=== PATIENT | male | born 1970 | race Hispanic/Latino ===

== ENCOUNTER 2017-07-09 15:20 | Observation (INO) | payer MEDICAID ==
[2017-07-09 15:29] VITALS: BMI 33.6
[2017-07-09 16:45] LABS: BASO # 0.02 K/mm3 (0.0-2.0); BASO % 0.2 % (0.0-3.0); EOS # 0.3 (0.0-0.7); EOS % 3.5 % (1.5-5.0); GRAN # 7.28 (1.4-6.5); GRAN % 76.1 % (50.0-68.0); HEMATOCRIT 40.6 % (42.0-52.0); LYMPH # 1.2 (1.2-3.4); LYMPH % 12.6 % (22.0-35.0); MEAN CELL VOLUME 87.5 fl (80.0-105.0); MEAN CORPUSCULAR HEMOGLOBIN 30.4 pg (25.0-35.0); MEAN CORPUSCULAR HGB CONC 34.7 g/dl (31.0-37.0); MEAN PLATELET VOLUME 10.4 fl (7.0-11.0); MONO # 0.7 (0.1-0.6); MONO % 7.6 % (1.0-6.0); RED CELL DISTRIBUTION WIDTH 13.2 % (11.5-14.5); WHITE BLOOD COUNT 9.6 10^3/ul (4.5-11.0)
[2017-07-09 17:00] LABS: ALB/GLOB RATIO 1.6 (1.1-1.8); ALKALINE PHOSPHATASE 47 U/L (38-126); ALT/SGPT 35 U/L (7-56); AST/SGOT 30 U/L (17-59); BILIRUBIN,TOTAL 0.4 mg/dL (0.2-1.3); BLOOD UREA NITROGEN 12 mg/dL (7-21); CALCIUM 10.4 mg/dL (8.4-10.5); CARBON DIOXIDE 25 mmol/L (21-33); CHLORIDE 99 mmol/L (98-107); GFR AFRICAN-AMERICAN > 60; GLUCOSE,RANDOM 163 mg/dL (70-110); POTASSIUM 3.3 mmol/L (3.6-5.0); SODIUM 138 mmol/L (132-148); TOTAL PROTEIN 8.3 g/dL (5.8-8.3)
[2017-07-09 17:15] LABS: TROPONIN I < 0.01 ng/mL
[2017-07-09 17:18] LABS: INR 1.2 (0.93-1.08); PARTIAL THROMBOPLASTIN TIME 27.9 Seconds (25.1-36.5)
[2017-07-09] MEDS ORDERED: Potassium Chloride 20 mEq/15 ml LIQ UD PO STA (17:22)
--- NOTE | 2017-07-09 17:28 | RAD ---
HISTORY: Palpitations. Portable study 16:35. 01/04/2015 COMPARISON: No prior. FINDINGS: LUNGS: No active pulmonary disease. PLEURA: No significant pleural effusion identified, no pneumothorax apparent. CARDIOVASCULAR: No radiographic findings to suggest acute or significant cardiovascular disease. OSSEOUS STRUCTURES: No significant abnormalities. VISUALIZED UPPER ABDOMEN: Normal. OTHER FINDINGS: None. IMPRESSION: No active disease. No significant interval change compared to the prior examination(s).
--- NOTE | 2017-07-09 17:55 | ED PDOC ---
Arrival/HPI - General Chief Complaint: Anxiety Time Seen by Provider: 07/09/17 15:51 Historian: Patient - History of Present Illness Narrative History of Present Illness (Text): 07/09/17 17:52 Patient is a 46-year-old male with past medical history of anxiety, hypertension , diabetes, COPD, asthma, VT 8 years ago, and CHF, reports one day history of intermittent palpitations which started today with no chest pain or shortness of breath. States that he feels mildly improved upon arrival to the emergency room. Reports he is currently taking Tamiflu and Z-Sandoval for flulike symptoms and is on day 4 of his current medications. Otherwise: (-) diaphoresis, (-) dyspnea , (-) exertional component, (-) dizziness, (-) headache, (-) syncope, (-) nausea , (-) vomiting, (-) abdominal pain, (-) calf swelling/pain, (-) neuro deficits. States that he has been drinking and eating well. He adds that he has had a prior stress and echo which was not completely normal, done at [facility] 3 -4 months ago. PMD Steve Burleson Past Medical History - Provider Review Nursing Documentation Reviewed: Yes - Infectious Disease Hx of Infectious Diseases: None - Tetanus Immunization Tetanus Immunization: Unknown - Cardiac Hx Cardiac Disorders: Yes Hx Hypertension: Yes Other/Comment: VT 2008 - Pulmonary Hx Respiratory Disorders: Yes Hx Asthma: Yes Hx Emphysema: Yes - Neurological Hx Neurological Disorder: Yes Hx Migraine: Yes Other/Comment: concussion a yr ago - HEENT Hx HEENT Disorder: No - Renal Hx Renal Disorder: Yes Hx Kidney Stones: Yes - Endocrine/Metabolic Hx Endocrine Disorders: Yes Hx Diabetes Mellitus Type 2: Yes - Hematological/Oncological Hx Blood Disorders: No - Integumentary Hx Dermatological Disorder: No - Musculoskeletal/Rheumatological Hx Musculoskeletal Disorders: Yes Hx Back Pain: Yes (chronic) Other/Comment: knee injections - Gastrointestinal Hx Gastrointestinal Disorders: No - Genitourinary/Gynecological Hx Genitourinary Disorders: No Hx Reproductive Disorders: (low testosterone) - Psychiatric Hx Psychophysiologic Disorder: No Hx Substance Use: No - Surgical History Hx Musculoskeletal Surgery: Yes (back fussion) - Suicidal Assessment Feels Threatened In Home Enviroment: No Family/Social History - Physician Review Nursing Documentation Reviewed: Yes Family/Social History: Unknown Family HX Smoking Status: Former Smoker Hx Alcohol Use: No Hx Substance Use: No Hx Substance Use Treatment: No Allergies/Home Meds Allergies/Adverse Reactions: Allergies barbital Allergy (Verified 07/09/17 15:39) RASH Home Medications: Home Meds Medication Instructions Recorded Confirmed Alprazolam [Xanax] 2 mg PO BID 12/28/11 07/09/17 Aspirin 325 mg PO DAILY 12/28/11 07/09/17 Glipizide 10 mg PO DAILY 12/28/11 07/09/17 Insulin Human NPH/Reg [humulin 28 units SC ACBD 12/28/11 07/09/17 70/30 70 U/Ml-30 U/Ml 10 Ml] Metformin HCl [Metformin] 1,000 mg PO BID 12/28/11 07/09/17 Simvastatin [Zocor] 40 mg PO HS 12/28/11 07/09/17 Fenofibrate,Micronized 134 mg PO DAILY 06/26/14 07/09/17 [Fenofibrate] Hydrochlorothiazide 12.5 mg PO DAILY 06/26/14 07/09/17 Hydrocodone/Acetaminophen [Vicodin 1 tab PO Q4 06/26/14 07/09/17 Hp 300 mg-10 mg] Lisinopril 40 mg PO DAILY 06/26/14 07/09/17 Morphine [MS Contin] 60 mg PO Q8 06/26/14 07/09/17 Omeprazole [PrilOSEC] 40 mg PO DAILY 06/26/14 07/09/17 Vitamin D 50,000 iu PO QWK 06/26/14 07/09/17 Review of Systems - Review of Systems Constitutional: absent: Fatigue, Weight Change, Fevers ENT: absent: Sore Throat, Rhinorrhea, Epistaxis, Sinus Congestion Respiratory: absent: SOB, Cough, Sputum Cardiovascular: Palpitations. absent: Chest Pain, Edema Gastrointestinal: absent: Abdominal Pain, Diarrhea, Vomiting Genitourinary Male: absent: Dysuria, Frequency, Hematuria Musculoskeletal: absent: Arthralgias, Back Pain, Neck Pain Skin: absent: Rash, Pruritis, Skin Lesions Neurological: absent: Headache, Dizziness, Focal Weakness Psychiatric: Anxiety. absent: Depression, Suicidal Ideation Physical Exam - Physical Exam Narrative Physical Exam (Text): 07/09/17 17:55 GENERAL APPEARANCE: Patient is awake, alert, oriented x 3, in no acute distress. Breathing easy and unlabored, speaking in full sentences SKIN: Warm, dry; (-) cyanosis. EYES: (-) conjunctival pallor. ENMT: Mucous membranes moist. NECK: (-) tenderness, (-) stiffness, (-) lymphadenopathy, (-) JVD. CHEST AND RESPIRATORY: (-) rash, (-) chest wall tenderness. Lungs: (-) rales , (-) rhonchi, (-) wheezes, (-) rub; breath sounds equal bilaterally. HEART AND CARDIOVASCULAR: (+) tachycardic, (-) irregularity; (-) murmur, (-) gallop, (-) rub. ABDOMEN AND GI: Soft; (-) distention, (-) tenderness, (-) palpable pulsatile mass. EXTREMITIES: (-) deformity; (-) edema, (-) calf tenderness. (+) distal pulses. NEURO AND PSYCH: Mental status as above. Cranial nerves grossly intact; strength symmetric. Vital Signs Temp Pulse Resp BP Pulse Ox 07/09/17 15:40 98.4 F 118 H 20 124/84 100 Medical Decision Making ED Course and Treatment: 07/09/17 17:56 46-year-old male with past medical history of anxiety, hypertension, diabetes, COPD, asthma, VT 8 years ago, and CHF, reports one day history of intermittent palpitations which started today with no chest pain or shortness of breath. Plan: -- Labs -- IV fluids -- Urinalysis -- EKG -- CXR -- Reassess and disposition EKG : ST at 116 bpm, (-) acute ST changes, as read by PA. CXR : NAD, as read by PA Repeat Vitals O2sat 98%RA Pulse 122. On re-evaluation, patient is sitting comfortably in no acute distress, reports no CP, no SOB. Breathing easy and unlabored, speaking in full sentences, lungs still cta, cardiac tachycardic. Tolerating po fluids. Labs reviewed : wbc nl, cmp wnl, trop (-). Considering history, risk factors, vitals, plan will be for inpatient observation. Case d/w Dr. Wilson, agrees with plan for inpt obs and to consult Dr. Rader for cardiology. - Lab Interpretations Lab Results: 07/09/17 16:20 07/09/17 16:20 Lab Results 07/09/17 16:59: Urine Opiates Screen Positive H, Urine Methadone Screen Negative , Ur Barbiturates Screen Negative, Ur Phencyclidine Scrn Negative, Ur Amphetamines Screen Negative, U Benzodiazepines Scrn Positive, U Oth Cocaine Metabols Negative, U Cannabinoids Screen Negative 07/09/17 16:20: TSH 3rd Generation 1.02 07/09/17 16:20: Sodium 138, Potassium 3.3 L, Chloride 99, Carbon Dioxide 25, Anion Gap 16, BUN 12, Creatinine 1.2, Est GFR ( Amer) > 60, Est GFR (Non- Af Amer) > 60, Random Glucose 163 H, Calcium 10.4, Total Bilirubin 0.4, AST 30, ALT 35, Alkaline Phosphatase 47, Lactate Dehydrogenase 372, Total Creatine Kinase 240 H, CK-MB (CK-2) 2.5, CK-MB (CK-2) % Cancelled, Troponin I < 0.01, Total Protein 8.3, Albumin 5.1 H, Globulin 3.2, Albumin/Globulin Ratio 1.6 07/09/17 16:20: PT 13.1 H, INR 1.20 H, APTT 27.9 07/09/17 16:20: WBC 9.6 D, RBC 4.64, Hgb 14.1, Hct 40.6 L, MCV 87.5, MCH 30.4, MCHC 34.7, RDW 13.2, Plt Count 370, MPV 10.4, Gran % 76.1 H, Lymph % (Auto) 12.6 L, Irwin % (Auto) 7.6 H, Eos % (Auto) 3.5, Baso % (Auto) 0.2, Gran # 7.28 H , Lymph # 1.2, Irwin # 0.7 H, Eos # 0.3, Baso # 0.02 - RAD Interpretation Radiology Orders: 07/09/17 16:07 CHEST PORTABLE [RAD] Stat - Medication Orders Current Medication Orders: Alprazolam (Xanax) 1 mg PO TID PRN; Protocol PRN Reason: Anxiety Last Admin: 07/09/17 21:57 Dose: 1 mg Behavioural Document 07/09/17 21:57 [email or web address] (Rec: 07/09/17 21:57 [email or web address] [id number]) Maintenance Maintenance Dose Yes Nonmedicinal Nonmedicinal Interventions Activity Behavior Behavior for Medication: Anxiety Re-Assess: Reassess Psych Meds Document 07/09/17 22:57 [email or web address] (Rec: 07/09/17 23:34 [facility] [id number]) Reassess Psych Med Effective Aspirin (Aspirin) 325 mg PO DAILY [facility] Atorvastatin Calcium (Lipitor) 20 mg PO HS [facility] Enoxaparin Sodium (Lovenox) 40 mg SC DAILY [facility] PRN Reason: Protocol Fenofibrate (Tricor) 145 mg PO DAILY [facility] Fluticasone Propionate (Flonase) 1 actuation NS DAILY [facility] Home Med (Home Med) 1 unit PO Q4H [facility] Last Admin: 07/10/17 01:13 Dose: 1 unit Hydrochlorothiazide (Microzide) 12.5 mg PO DAILY [facility] Insulin Human Regular (Humulin R Low) 0 units SC ACHS [facility] PRN Reason: Protocol Last Admin: 07/09/17 23:24 Dose: Not Given Non-Admin Reason: Blood Sugar Parameter [facility] Blood Glucose Document 07/09/17 23:24 [email or web address] (Rec: 07/09/17 23:31 [facility] [id number]) Blood Glucose Finger Stick Blood Glucose (70-120) 130 Levalbuterol HCl (Xopenex) 0.63 mg IH QIDRESP PRN PRN Reason: Nasal congestion Last Admin: 07/09/17 23:50 Dose: 0.63 mg Lisinopril (Zestril) 20 mg PO DAILY [facility] Metoprolol Tartrate (Lopressor) 25 mg PO BRKDIN [facility] Morphine Sulfate (Morphine Extended Release Tab) 60 mg PO Q8 [facility] Last Admin: 07/09/17 21:57 Dose: 60 mg [facility] Pain Assessment Document 07/09/17 21:57 [email or web address] (Rec: 07/09/17 21:58 [facility] [id number]) Pain Reassessment Is this a pain reassessment? No Sleep Is patient sleeping during reassessment? No Presence of Pain Presence of Pain Yes Pain Scale Used Pain Scale Used Numeric Location Pain Location Body Site Back Description Description Intermittent Intensity of Pain at present 8 Acceptable Level of Pain 6 Radiation Location no Pain Behavior Facial Grimacing Aggravating Factors Contant Alleviating Factors/Management Medication Techniques Alleviating Factors Medication Re-Assess: [facility] Pain Assessment Document 07/09/17 22:57 [email or web address] (Rec: 07/09/17 23:34 [facility] [id number]) Pain Reassessment Is this a pain reassessment? Yes Sleep Is patient sleeping during reassessment? No Presence of Pain Presence of Pain No Pantoprazole Sodium (Protonix Ec Tab) 40 mg PO ACB [facility] Pneumococcal Polyvalent Vaccine (Pneumovax 23 Vaccine) 0.5 ml IM .ONCE ONE Stop: 07/11/17 10:01 Topiramate (Topamax) 100 mg PO BID [facility] PRN Reason: Protocol Last Admin: 07/09/17 21:56 Dose: 100 mg Behavioural Document 07/09/17 21:56 [email or web address] (Rec: 07/09/17 21:56 [facility] [id number]) Maintenance Maintenance Dose Yes Nonmedicinal Nonmedicinal Interventions Activity Behavior Behavior for Medication: Anxiety Re-Assess: Reassess Psych Meds Document 07/09/17 22:56 [email or web address] (Rec: 07/09/17 23:34 [facility] [id number]) Reassess Psych Med Effective Discontinued Medications Home Med (Home Med) 1 unit PO Q4H [facility] Non-Formulary Medication (Hydrocodone/Acetaminophen [Vicodin Hp 10-300 Mg Tablet ]) 1 tab PO Q4 [facility] Potassium Chloride (Potassium Chloride Oral Soln) 20 meq PO STAT STA Stop: 07/09/17 17:23 Last Admin: 07/09/17 18:05 Dose: 20 meq - PA / [employer] / Resident Statement / has reviewed & agrees with the documentation as recorded. Disposition/Present on Arrival - Present on Arrival Any Indicators Present on Arrival: No History of DVT/PE: No History of Uncontrolled Diabetes: No Urinary Catheter: No History of Decub. Ulcer: No History Surgical Site Infection Following: None - Disposition Have Diagnosis and Disposition been Completed?: Yes Diagnosis: Palpitation Disposition: HOSPITALIZED Disposition Time: 18:06 Patient Plan: Observation (remote tele) Patient Problems: Current Active Problems Problem Status Onset Palpitation Acute Condition: STABLE
[2017-07-09] MEDS: Morphine 30 mg SR Tab PO SCH (21:57)
[2017-07-09] MEDS: Insulin Reg-LOW-Coverage SC SCH (23:24)
--- NOTE | 2017-07-09 23:47 | CARD ---
APPROVED REPORT EKG Measurement Heart [id number] <Conclusion> Sinus tachycardia Otherwise normal ECG
[2017-07-09] MEDS: Levalbuterol 0.63 MG/3 ML Inhal Soln UD IH PRN (23:50)
[2017-07-10] MEDS ORDERED: [UNRECOGNIZED DRUG - OTHER] PO SCH
[2017-07-10] MEDS ORDERED: ACETAMINOPHEN PO SCH ×2 (01:00)
[2017-07-10] MEDS ORDERED: HYDROCODONE PO SCH ×2 (01:00)
[2017-07-10] MEDS: HYDROCODONE PO SCH ×5 (01:13→17:42)
[2017-07-10] MEDS: ACETAMINOPHEN PO SCH ×5 (01:13→17:42)
[2017-07-10] MEDS: Fluticasone Nasal 50 mcg/Spray NS SCH ×3 (01:21→11:17)
[2017-07-10] MEDS: Morphine 30 mg SR Tab PO SCH ×2 (06:18→14:11)
[2017-07-10] MEDS ORDERED: Insulin Human NPH/Reg 70/30 Vial(3 ml) SC SCH (07:30)
[2017-07-10] MEDS ORDERED: Pantoprazole 40 mg EC Tab PO SCH (07:30)
[2017-07-10 08:02] VITALS: RESP 20
[2017-07-10] MEDS: Insulin Reg-LOW-Coverage SC SCH ×4 (08:44→17:02)
[2017-07-10 09:09] LABS: BASO # 0.02 K/mm3 (0.0-2.0); BASO % 0.2 % (0.0-3.0); EOS # 0.4 (0.0-0.7); EOS % 5.3 % (1.5-5.0); GRAN # 5.35 (1.4-6.5); GRAN % 66.6 % (50.0-68.0); LYMPH # 1.4 (1.2-3.4); LYMPH % 17.9 % (22.0-35.0); MEAN CELL VOLUME 87.1 fl (80.0-105.0); MEAN CORPUSCULAR HEMOGLOBIN 30.1 pg (25.0-35.0); MEAN CORPUSCULAR HGB CONC 34.5 g/dl (31.0-37.0); MONO # 0.8 (0.1-0.6); RED CELL DISTRIBUTION WIDTH 13.3 % (11.5-14.5)
[2017-07-10 09:36] LABS: ALB/GLOB RATIO 1.6 (1.1-1.8); ALKALINE PHOSPHATASE 48 U/L (38-126); ALT/SGPT 25 U/L (7-56); AST/SGOT 27 U/L (17-59); BILIRUBIN,TOTAL 0.6 mg/dL (0.2-1.3); BLOOD UREA NITROGEN 10 mg/dL (7-21); CALCIUM 9.8 mg/dL (8.4-10.5); CARBON DIOXIDE 22 mmol/L (21-33); CHLORIDE 103 mmol/L (98-107); GFR AFRICAN-AMERICAN > 60; GLUCOSE,RANDOM 164 mg/dL (70-110); POTASSIUM 3.7 mmol/L (3.6-5.0); SODIUM 139 mmol/L (132-148); TOTAL PROTEIN 7.9 g/dL (5.8-8.3)
[2017-07-10] MEDS ORDERED: Enoxaparin 40 mg Syringe SC SCH (10:00)
[2017-07-10] MEDS: Levalbuterol 0.63 MG/3 ML Inhal Soln UD IH PRN (12:49)
--- NOTE | 2017-07-10 17:17 | CARD ---
APPROVED REPORT EKG Measurement Heart [id number] <Conclusion> Normal sinus rhythm Normal ECG
[2017-07-10 17:50] VITALS: BP 129/79
[2017-07-10 18:25] VITALS: TEMP 97.9; O2SAT 97
[2017-07-10 18:46] VITALS: PULSE 76
--- NOTE | 2017-07-10 23:20 | HP ---
REASON FOR ADMISSION/MAIN COMPLAINT: Palpitations. HISTORY OF PRESENT ILLNESS: This 46-year-old male who has a history of chronic anxiety, chronic back pain, does have history of COPD, hypertension, diabetes on diet control, came in to the hospital with intermittent palpitations, it seems worse and came into the ER for evaluation. Denied any chest pain, any shortness of breath, any leg pain, or any leg swelling. According to the patient, he did not feel any dizziness. He did not have any chest pain, diaphoresis, nausea, vomiting, or any fever. The patient was seen by Cardiology before Dr. Burleson and had a stress test, which was normal less than two years ago. No history of other cardiopulmonary problem except as above. PAST MEDICAL HISTORY: According to the patient, he did have a history of myocardial infarction eight years ago unclear, but he mentioned it and did have a history of COPD, diabetes type II, on Victoza and diet control, hypertension, and anxiety chronic, on Xanax and also chronic back pain, on morphine and Vicodin. The patient also have a seizure disorder, seen by Neurologist Dr. Valderrama. ALLERGIES: HE IS ALLERGIC TO BARBITAL. FAMILY HISTORY: Noncontributory. SOCIAL HISTORY: He lives alone with his daughter. He is from his due to problems. No alcohol. No substance abuse. He does not smoke right now, but he was former smoker. MEDICATIONS: He takes multiple medication including fenofibrate 160 mg daily, Topamax 100 mg b.i.d., atorvastatin 20 mg daily, Xanax 1 mg t.i.d., hydrochlorothiazide 25 mg daily, Flomax 0.4 mg daily, Vicodin 10/325 mg q. 4 hours p.r.n., vitamin D once a month, Protonix 40 once a day, aspirin 325 mg once a day, lisinopril 20 mg p.o. daily, Amitiza 24 mg b.i.d., Colace 100 mg p.o. b.i.d., and MS Contin 60 mg p.o. q. 8 hours. PHYSICAL EXAMINATION: VITAL SIGNS: On 07/09/2017, his temperature 98.4, heart rate 118, blood pressure 124/84, respiratory rate 20, and 100% saturation on room air. He is breathing comfortably not labored. HEAD AND NECK: Normal. No JVD. No thyromegaly. CHEST: Clear, good air entry. CARDIAC: First sound and second sound normal. ABDOMEN: Soft and nontender. EXTREMITIES: No edema. NEUROLOGIC: Normal. LABORATORY STUDIES: White count 9.6, hemoglobin 14.1, hematocrit 40.6, and platelet 370. Chemistry; sodium 138, potassium 3.3, chloride 99, bicarb 25, BUN 12, and creatinine 1.2. Blood sugar 163. Calcium 10.4. Liver enzymes is normal. His total CPK 240. His troponin is negative. The patient had an EKG, shows sinus tachycardia, 116 heart rate otherwise normal EKG. Chest x-ray reported no active pulmonary disease. IMPRESSION AND PLAN: A 46-year-old male admitted with tachycardia; palpitations, intermittent that he felt more came to the emergency room, seems to be breathing normal, does not complain of any chest pain or shortness of breath. physical exam was in normal range. We will admit the patient for observation, see Dr. Rader, Cardiology for his palpitations, may be will put him on beta alex. We will talk with the Cardiology. It is probably chronic anxiety, which got worse, live by himself. We will maintain him on telemetry. We will follow up clinically. We will repeat labs in the morning and restart all his medications including Xanax and narcotics plus nebulizer treatment, Xopenex, although he does not complain of any short of breath, so we will make it as p.r.n. just in case and we will follow up clinically over 24 hours observations. Micheal Wilson MD
--- NOTE | 2017-07-11 00:35 | CON ---
DATE: 07/10/2017 CONSULTING SERVICE: Cardiology. CONSULTING PHYSICIAN: Dr. Anali Rader. REASON FOR CONSULTATION: Palpitation and cardiac evaluation. BRIEF CLINICAL HISTORY: This is a 46-year-old male with past medical history of hyperlipidemia, hypertension, diabetic for 4 years, history of palpitation off and on for 4 years, being followed by Dr. Burleson at [facility], has a stress test twice, most recently 6 months ago, and Holter [address] Wilson's office and echo with Dr. Burleson. It was told everything was negative but the patient keeps on complaining of palpitations. The patient came here to the emergency room. Denies any chest pain. Denies any shortness of breath. Denies any palpitations now, but he states the palpitation every now and then, no definite relation to exertion, sometimes lying and the patient gets palpitation. Yesterday, said that after having a [employer] news in [address] [place] [address], the patient became very anxious, wanted to slate picker daughter from the school and then felt palpitation, decided to come to the emergency room, but it has been stated that the patient has an anxiety that causes him precipitated palpitation. PAST MEDICAL HISTORY: Significant for diabetes, hypertension, hyperlipidemia. PAST SURGICAL HISTORY: Significant for back injury; and spinal fusion, after that the patient has disability . SOCIAL HISTORY: Denies smoking. Denies any history of alcohol abuse. History of disability for 4 to 5 years after having back surgery. Used to be a pest control and spray for pest. FAMILY HISTORY: Significant for coronary artery disease. Father at age 52. Mother had heart problems, started at 50. Brother had a quadruple bypass at age of 40. CURRENT MEDICATIONS: The patient is taking at home vitamin D, Zocor, Prilosec, morphine, metformin, lisinopril, aspirin, and Xanax. ALLERGIES: TO BARBITAL, USED TO TAKE FOR MIGRAINE. REVIEW OF SYSTEMS: As per HPI. PREVIOUS CARDIAC WORKUP: As follows, the patient had a nuclear stress test with Dr. Patrick Burleson on 02/08/2015 and that was normal ejection fraction 58%. Most recently, the patient underwent stress test done by Dr. Patrick Burleson on 02/05/2017, it is a pharmacological stress test Lexiscan, and it was read ____ normal. No regional wall motion abnormalities. No ischemia noted. Ejection fraction of 65% dated 02/06/2017. History of most recent echo again 02/05/2017 that shows ejection fraction of 55%, normal LV function, left atrium borderline dilated, mitral valve thickened, no evidence of prolapse, no mitral stenosis, trace tricuspid regurgitation and RV systolic pressure 34 mmHg, calculated ejection fraction of 52%. The patient has also bilateral carotid duplex scan done 03/13/2015 that shows bilateral 0% to 19% stenosis. The patient's EKG shows nonspecific sinus tachycardia, nonspecific ST-T changes noted that as of yesterday. Sinus tachycardia was normal. The patient has chest x-ray on 07/09/2017, no active disease. PHYSICAL EXAMINATION: As follows: VITAL SIGNS: Height of the patient is 5 feet 7 inches, weight of the patient is 215, body mass index 33.7 kg/m2, temperature afebrile, heart rate 81, blood pressure 112/69. HEENT: PERRLA. Extraocular muscles intact. NECK: Supple. No carotid bruits or thyromegaly. CHEST: Clear to auscultation. HEART: S1 and S2 regular. ABDOMEN: Soft. EXTREMITIES: Clubbing and cyanosis negative. LABORATORY DATA: Blood workup as follows: WBC 8, hemoglobin 13.8, hematocrit 40.0, and platelet count 356. Chemistry showed sodium 139, potassium 3.7, chloride 103, carbon dioxide 22, anion gap of 18, BUN 10, creatinine 1.0. Total protein 7.9, albumin 4.9, albumin/globulin ratio 1.6. IMPRESSION: Sinus tachycardia, rule out hyperthyroidism, negative stress test. No significant structural heart disease. We will put Holter monitor and start low dose of propranolol, a nonspecific beta-alex. Discontinue metoprolol, We will follow with you. Get lipid profile, TSH, hemoglobin A1c. Thank you, Dr. Wilson, for providing me the opportunity in taking care of the patient, Abdifatah Harrison. We will follow with you. Anali Rader MD
[2017-07-11] MEDS ORDERED: Pneumococcal 23-Valent Vaccine IM ONE (10:00)
--- NOTE | 2017-07-12 06:19 | DS ---
HISTORY OF PRESENT ILLNESS: The patient came in with palpitations where the patient admitted overnight for palpitation evaluation. He has no chest pain or short of breath with that. He does have chronic anxiety on Xanax. Just took chronic back pain medicine for his underlying chronic disc disease for years. The patient has also family issues, his is away and he has a daughter. He has lot of social issues that has had put him at stress. He has no other complaints. The patient was in ER evaluated and admitted. EKG was normal except sinus tachycardia and the patient does have history of hypertension, diabetes and according to him he has history of RI. Unclear on that situation. He also take seizure medications, cholesterol medications. The patient was admitted to telemetry. There is no arrhythmia. He was given metoprolol 25 b.i.d. which was replaced with Inderal 10 mg t.i.d., which seems feeling much better with that because of his general broad spectrum beta alex as more effects on him and he seems to feel better with that. Otherwise no new complaints. His D-Dimer is low so the probability of pulmonary embolism unlikely. He is moving around and his troponin was negative. The patient will be discharged home to be followed as outpatient. Get Holter monitor as outpatient and we will also continue all other medications that he is taking in addition to Inderal 10 mg three times a day, I gave him 90 pills and I gave him 2 more refills, he does not run out from it. I advised him he cannot stop it suddenly and we will follow up on that. PHYSICAL EXAMINATION: VITAL SIGNS: Temperature 97.9, heart rate 73, blood pressure 100/62, respirations 20, saturation 97% on room air. HEAD AND NECK: Normal. No JVD or thyromegaly. CHEST: Clear with good air entry. CARDIAC: First sound and second sound normal. ABDOMEN: Soft, nontender. EXTREMITIES: No edema. NEUROLOGIC: Normal. LABORATORY DATA: Normal. Negative troponin and his white count is 8. Hemoglobin 15.8. Hematocrit 40, platelets 356. His chemistry shows sodium 139, potassium 3.7, chloride 103, potassium 2, BUN 10, creatinine is 1. Blood sugar 164. Liver function test is normal. Urine was normal except that showed Xanax and all his prescribed medications and his D-dimer was negative. His PT/INR is normal range. INR 1.2 and PTT 27.9, which is normal. DISCHARGE DIAGNOSES: 1. Palpitations. 2. Acute worsening of his chronic anxiety. 3. Hypertension. 4. Obesity. 5. Hypercholesterolemia. 6. Chronic back pain. 7. History of seizure disorder. 8. Social problem with the family, girlfriend and a child. PLAN: Continue all his medications. Follow up in the office in a week. His physical examination on the date of discharge is stable. He is alert and awake and oriented x3. No distress. His vitals were stable on discharge. Followup in the office in a week. Micheal Wilson MD
== END 2017-07-10 20:55 | disposition home or self-care (01) ==
LOC: ED 15:20 → ERH 18:04 → 3RNO 19:21
PROVIDERS: ADMIT Internal Medicine; ATTEND Internal Medicine
DX: F41.9 Anxiety disorder, unspecified (principal); E11.9 Type 2 diabetes mellitus without complications; I11.0 Hypertensive heart disease with heart failure; I50.9 Heart failure, unspecified; E78.5 Hyperlipidemia, unspecified; G40.909 Epilepsy, unspecified, not intractable, without status epilepticus; Z82.49 Family history of ischemic heart disease and other diseases of the circulatory system; I25.2 Old myocardial infarction; J43.9 Emphysema, unspecified; Z79.82 Long term (current) use of aspirin; Z79.899 Other long term (current) drug therapy; Z87.442 Personal history of urinary calculi; Z87.891 Personal history of nicotine dependence; Z98.1 Arthrodesis status; G89.29 Other chronic pain; R00.0 Tachycardia, unspecified; E05.90 Thyrotoxicosis, unspecified without thyrotoxic crisis or storm; M54.9 Dorsalgia, unspecified; Z88.8 Allergy status to other drugs, medicaments and biological substances
CPT/HCPCS: 36415; 71010; 80053; 80324; 80345; 80346; 80349; 80353; 80358; 80361; 82550; 82553; 82948; 83615; 83992; 84443; 84484; 85025; 85378; 85610; 85730; 93005; 94640; 99285; G0378; J1650

== ENCOUNTER 2017-09-22 12:37 | Emergency (ER) | payer MEDICAID ==
[2017-09-22 12:40] VITALS: TEMP 98.3
[2017-09-22 12:41] VITALS: BMI 33.2
[2017-09-22] MEDS ORDERED: Morphine 4 mg/ml ISec IVP STA (12:56)
[2017-09-22] MEDS ORDERED: Sodium Chloride 0.9% 1,000 ML IV STA (12:56)
--- NOTE | 2017-09-22 13:01 | ED PDOC ---
Arrival/HPI - General Chief Complaint: Back Pain Time Seen by Provider: 09/22/17 12:45 Historian: Patient - History of Present Illness Narrative History of Present Illness (Text): 09/22/17 12:57 Hunter Gardiner is a 46 year old male, whose past medical history includes diverticulitis, anxiety, chronic back pain, COPD, hypertension, and diabetes, who presents to the emergency department complaining of lower back pain that radiates to the left testicle. Patient notes associated diarrhea. Patient called his primary physician, who suggested going to the emergency department for evaluation. Patient denies any fever, chills, chest pain, shortness of breath, nausea, vomiting, neck pain, headache, dizziness or any other complaints. Time/Duration: 24 hours Symptom Onset: Gradual Symptom Course: Unchanged Activities at Onset: Light Context: Home Past Medical History - Provider Review Nursing Documentation Reviewed: Yes - Infectious Disease Hx of Infectious Diseases: None - Tetanus Immunization Tetanus Immunization: Unknown - Cardiac Hx Cardiac Disorders: Yes Hx Hypertension: Yes Other/Comment: 2008 - Pulmonary Hx Respiratory Disorders: Yes Hx Asthma: Yes Hx Emphysema: Yes - Neurological Hx Neurological Disorder: Yes Hx Migraine: Yes Other/Comment: concussion a yr ago - HEENT Hx HEENT Disorder: No - Renal Hx Renal Disorder: Yes Hx Kidney Stones: Yes - Endocrine/Metabolic Hx Endocrine Disorders: Yes Hx Diabetes Mellitus Type 2: Yes - Hematological/Oncological Hx Blood Disorders: No - Integumentary Hx Dermatological Disorder: No - Musculoskeletal/Rheumatological Hx Musculoskeletal Disorders: Yes Hx Back Pain: Yes (chronic) Other/Comment: knee injections - Gastrointestinal Hx Gastrointestinal Disorders: No - Genitourinary/Gynecological Hx Genitourinary Disorders: No Hx Reproductive Disorders: (low testosterone) - Psychiatric Hx Psychophysiologic Disorder: No Hx Substance Use: No - Surgical History Hx Musculoskeletal Surgery: Yes (back fussion) - Suicidal Assessment Feels Threatened In Home Enviroment: No Family/Social History - Physician Review Nursing Documentation Reviewed: Yes Family/Social History: Unknown Family HX Smoking Status: Former Smoker Hx Alcohol Use: No Hx Substance Use: No Hx Substance Use Treatment: No Allergies/Home Meds Allergies/Adverse Reactions: Allergies butabitol Allergy (Uncoded 09/22/17 12:44) RASH Home Medications: Home Meds Medication Instructions Recorded Confirmed Alprazolam [Xanax] 2 mg PO TID 12/28/11 07/09/17 Fenofibrate,Micronized 160 mg PO DAILY 06/26/14 09/22/17 [Fenofibrate] Morphine [MS Contin] 20 mg PO DAILY 06/26/14 07/09/17 Albuterol HFA [Ventolin HFA 90 2 puff IH QID 09/22/17 09/22/17 mcg/actuation (8 g)] Atorvastatin [Lipitor] 20 mg PO DAILY 09/22/17 09/22/17 Cholecalciferol [Vitamin D] 5,000 unit PO QWK 09/22/17 09/22/17 Docusate [Colace] 100 mg PO BID 09/22/17 09/22/17 Fluticasone Propionate [Flonase] 0 spr JJ DAILY 09/22/17 09/22/17 Hydrocodone/Acetaminophen [Vicodin 1 tab PO Q4 09/22/17 09/22/17 5 mg-300 mg] Liraglutide [Victoza] 0 mg SC DAILY 09/22/17 09/22/17 Lisinopril [Zestril] 20 mg PO DAILY 09/22/17 09/22/17 Lubiprostone [Amitiza] 24 mcg PO DAILY 09/22/17 09/22/17 Multivitamin [Multivitamins] 1 each PO DAILY 09/22/17 09/22/17 Pantoprazole Sodium [Protonix] 40 mg PO DAILY 09/22/17 09/22/17 Tamsulosin [Flomax] 0.4 mg PO Q4 09/22/17 09/22/17 Topiramate [Topamax] 100 mg PO BID 09/22/17 09/22/17 Review of Systems - Review of Systems Constitutional: Normal Eyes: Normal ENT: Normal Respiratory: Normal. absent: SOB, Cough Cardiovascular: Normal. absent: Chest Pain Gastrointestinal: Diarrhea. absent: Abdominal Pain, Nausea, Vomiting Genitourinary Male: Normal. absent: Dysuria, Frequency, Hematuria, Urinary Output Changes Musculoskeletal: Back Pain. absent: Neck Pain Skin: Normal. absent: Rash Neurological: Normal. absent: Headache, Dizziness Endocrine: Normal Hemo/Lymphatic: Normal Psychiatric: Normal Physical Exam Vital Signs Reviewed: Yes Vital Signs Temp Pulse Resp BP Pulse Ox 09/22/17 15:28 88 16 118/62 98 09/22/17 12:41 98.3 F 81 18 124/72 100 09/22/17 12:39 98.3 F 86 21 124/72 100 Temperature: Afebrile Blood Pressure: Normal Pulse: Regular Respiratory Rate: Normal Appearance: Positive for: Well-Appearing, Non-Toxic, Comfortable Pain Distress: None Mental Status: Positive for: Alert and Oriented X 3 - Systems Exam Head: Present: Atraumatic, Normocephalic Pupils: Present: PERRL Extroacular Muscles: Present: EOMI Conjunctiva: Present: Normal Mouth: Present: Moist Mucous Membranes Neck: Present: Normal Range of Motion Respiratory/Chest: Present: Clear to Auscultation, Good Air Exchange. No: Respiratory Distress, Accessory Muscle Use Cardiovascular: Present: Regular Rate and Rhythm, Normal S1, S2. No: Murmurs Abdomen: Present: Normal Bowel Sounds. No: Tenderness, Distention, Peritoneal Signs Back: Present: Other (Left flank tenderness) Upper Extremity: Present: Normal Inspection. No: Cyanosis, Edema Lower Extremity: Present: Normal Inspection. No: Edema Neurological: Present: GCS=15, CN II-XII Intact, Speech Normal Skin: Present: Warm, Dry, Normal Color. No: Rashes Psychiatric: Present: Alert, Oriented x 3, Normal Insight, Normal Concentration Medical Decision Making ED Course and Treatment: 09/22/17 13:05 Impression: 46 year old male presents to the emergency department complaining of lower back pain radiating to the left testicle. Plan: -- Labs, Lipase -- Urinalysis -- Morphine -- Sodium Chloride -- Reassess and disposition Prior Visits: Notes and results from previous visits were reviewed. Patient was last seen in the emergency department on 07/09/17 for palpitations. Patient was discharged. Progress Notes: 09/22/17 14:06 Abdomen/Pelvis CT reviewed. shows: LOWER THORAX: There is a stable 4 mm subpleural nodule in the left lung base. The right lung base is clear. LIVER: Normal in size. No gross lesion or ductal dilatation. GALLBLADDER AND BILE DUCTS: The gallbladder is well distended. There are few small gallstones. PANCREAS: Normal in size. No gross lesion or ductal dilatation. SPLEEN: There is mild splenomegaly. ADRENALS: No discrete nodule. KIDNEYS AND URETERS: There is asymmetric enlargement of the left kidney with moderate hydronephrosis and perinephric stranding. There is moderate diffuse dilatation of the left ureteral and 6 x 3 mm stone in the urinary bladder distal to the UV junction. There is also a 4 mm stone in the dependent posterior urinary bladder. There are 2 nonobstructing stones in the left lower pole measuring 13 mm and 8 mm. The right kidney is normal in size. There is a 4 mm nonobstructing stone in the right lower pole and punctate nonobstructing stones in the right lower pole. There is mild right hydronephrosis. No obstructive uropathy. VASCULATURE: No aortic aneurysm. BOWEL: The small bowel loops are normal in caliber. There is extensive colonic diverticulosis without CT evidence for acute diverticulitis. There is moderate amount of stool in the colon. No bowel dilatation or obstruction. APPENDIX: Normal appendix. PERITONEUM: No free fluid. No free air. LYMPH NODES: No enlarged lymph nodes. BLADDER: Well distended. There is a 4 mm stone along the dependent posterior wall. REPRODUCTIVE: Unremarkable. BONES: No acute fracture. Status post posterior spinal fusion at L4 on L5. OTHER FINDINGS: None. IMPRESSION: 1. Findings are consistent with recent passage of 6 x 3 mm left ureteral stone which is seen distal to the UV junction in the urinary bladder with residual moderate dilatation of the left ureteral, moderate hydronephrosis, edema and enlargement of the kidney and perinephric fat stranding. Also noted is a 4 mm stone along the dependent posterior wall of the urinary bladder. 2. Two nonobstructing stones in the lower pole of the left kidney measuring 13 mm and 8 mm. 3. Small nonobstructing stones in the lower pole of the right kidney. 4. Colonic diverticulosis without CT evidence for acute diverticulitis. 09/22/17 16:19 pt reassesed states pain is resoveld. asking for dc. case dsicussed with dr staley. agrees with dc home. - Lab Interpretations Lab Results: 09/22/17 12:50 09/22/17 12:50 Lab Results 09/22/17 13:58: Urine Color Yellow, Urine Appearance Clear, Urine pH 6.5, Ur Specific [place] 1.010, Urine Protein Negative, Urine Glucose (UA) Negative, Urine Ketones Negative, Urine Blood Moderate H, Urine Nitrate Negative, Urine Bilirubin Negative, Urine Urobilinogen 0.2, Ur Leukocyte Esterase Negative, Urine RBC 0 - 2, Urine WBC Negative, Ur Epithelial Cells 0 - 2, Urine Bacteria Trace 09/22/17 12:50: Sodium 140, Potassium 4.0, Chloride 102, Carbon Dioxide 25, Anion Gap 17, BUN 15, Creatinine 1.4, Est GFR ( Amer) > 60, Est GFR (Non- Af Amer) 55, Random Glucose 136 H, Calcium 9.8, Total Bilirubin 0.5, AST 31, ALT 27, Alkaline Phosphatase 37 L D, Total Protein 7.1, Albumin 4.3, Globulin 2.8, Albumin/Globulin Ratio 1.5, Lipase 236 09/22/17 12:50: PT 12.3, INR 1.08, APTT 30.8 09/22/17 12:50: WBC 9.6, RBC 4.71, Hgb 13.7 L, Hct 40.7 L, MCV 86.4, MCH 29.1, MCHC 33.7, RDW 13.8, Plt Count 330, MPV 10.0, Gran % 67.2, Lymph % (Auto) 14.1 L , Morgan % (Auto) 13.0 H, Eos % (Auto) 5.5 H, Baso % (Auto) 0.2, Gran # 6.43, Lymph # (Auto) 1.4, Morgan # (Auto) 1.3 H, Eos # (Auto) 0.5, Baso # (Auto) 0.02 - RAD Interpretation Radiology Orders: 09/22/17 13:14 ABD & PELVIS W/O PO OR IV CONT [CT] Stat TESTES DUPLEX COMPLETE [US] Stat - Medication Orders Current Medication Orders: Discontinued Medications Sodium Chloride (Sodium Chloride 0.9%) 1,000 mls @ 1,000 mls/hr IV .Q1H STA Stop: 09/22/17 13:55 Last Admin: 09/22/17 13:22 Dose: 1,000 mls/hr eMAR Start Stop Document 09/22/17 13:22 SE (Rec: 09/22/17 13:22 SE [facility] [id number]) Intravenous Solution Start Date 09/22/17 Start Time 13:22 Ketorolac Tromethamine (Toradol) 30 mg IVP STAT STA Stop: 09/22/17 14:53 Last Admin: 09/22/17 15:04 Dose: 30 mg MAR Pain Assessment Document 09/22/17 15:04 SE (Rec: 09/22/17 15:05 SE [id number]) Pain Reassessment Is this a pain reassessment? No Sleep Is patient sleeping during reassessment? No Presence of Pain Presence of Pain Yes Pain Scale Used Pain Scale Used Numeric Location Left, Right or Bilateral Left IVP Administration Document 09/22/17 15:04 SE (Rec: 09/22/17 15:05 SE [id number]) Charges for Administration # of IVP Administrations 1 Morphine Sulfate (Morphine) 4 mg IVP STAT STA Stop: 09/22/17 12:57 Last Admin: 09/22/17 14:25 Dose: - Scribe Statement The provider has reviewed the documentation as recorded by the Scribe Michaelle Best All medical record entries made by the Scribe were at my direction and personally dictated by me. I have reviewed the chart and agree that the record accurately reflects my personal performance of the history, physical exam, medical decision making, and the department course for this patient. I have also personally directed, reviewed, and agree with the discharge instructions and disposition. Disposition/Present on Arrival - Present on Arrival Any Indicators Present on Arrival: No History of DVT/PE: No History of Uncontrolled Diabetes: No Urinary Catheter: No History of Decub. Ulcer: No History Surgical Site Infection Following: None - Disposition Have Diagnosis and Disposition been Completed?: Yes Diagnosis: Kidney stone, Testicular pain, Varicocele Disposition: HOME/ ROUTINE Disposition Time: 04:20 Condition: STABLE Discharge Instructions (ExitCare): Kidney Stones in Adults, Varicocele Additional Instructions: follow up with your doctor. return to er with worsening symptoms or concerns. Prescriptions: Tamsulosin [Flomax] 0.4 mg PO DAILY #10 cap Referrals: Micheal Wilson MD [Primary Care Provider] - Follow up with primary Ney Staley MD [Staff Provider] - Follow up with primary Forms: OVIA (Hebrew)
[2017-09-22 13:30] LABS: BASO # 0.02 K/mm3 (0.0-2.0); BASO % 0.2 % (0.0-3.0); EOS # 0.5 (0.0-0.7); EOS % 5.5 % (1.5-5.0); GRAN # 6.43 (1.4-6.5); GRAN % 67.2 % (50.0-68.0); HEMOGLOBIN 13.7 g/dL (14.0-18.0); LYMPH # 1.4 (1.2-3.4); LYMPH % 14.1 % (22.0-35.0); MEAN CELL VOLUME 86.4 fl (80.0-105.0); MEAN CORPUSCULAR HEMOGLOBIN 29.1 pg (25.0-35.0); MEAN CORPUSCULAR HGB CONC 33.7 g/dl (31.0-37.0); MONO # 1.3 (0.1-0.6); RBC 4.71 10^6/uL (3.5-6.1); RED CELL DISTRIBUTION WIDTH 13.8 % (11.5-14.5); WHITE BLOOD COUNT 9.6 10^3/ul (4.5-11.0)
--- NOTE | 2017-09-22 13:50 | CT ---
PROCEDURE: CT Abdomen and Pelvis without intravenous contrast HISTORY: left flank pain COMPARISON: 06/19/2017. TECHNIQUE: CT scan of the abdomen and pelvis was performed without administration of intravenous contrast. Oral contrast was not administered. Coronal and sagittal reformatted images were obtained. Radiation dose: Total exam DLP = 690.17 mGy-cm. This CT exam was performed using one or more of the following dose reduction techniques: Automated exposure control, adjustment of the mA and/or kV according to patient size, and/or use of iterative reconstruction technique. FINDINGS: LOWER THORAX: There is a stable 4 mm subpleural nodule in the left lung base. The right lung base is clear. LIVER: Normal in size. No gross lesion or ductal dilatation. GALLBLADDER AND BILE DUCTS: The gallbladder is well distended. There are few small gallstones. PANCREAS: Normal in size. No gross lesion or ductal dilatation. SPLEEN: There is mild splenomegaly. ADRENALS: No discrete nodule. KIDNEYS AND URETERS: There is asymmetric enlargement of the left kidney with moderate hydronephrosis and perinephric stranding. There is moderate diffuse dilatation of the left ureteral and 6 x 3 mm stone in the urinary bladder distal to the UV junction. There is also a 4 mm stone in the dependent posterior urinary bladder. There are 2 nonobstructing stones in the left lower pole measuring 13 mm and 8 mm. The right kidney is normal in size. There is a 4 mm nonobstructing stone in the right lower pole and punctate nonobstructing stones in the right lower pole. There is mild right hydronephrosis. No obstructive uropathy. VASCULATURE: No aortic aneurysm. BOWEL: The small bowel loops are normal in caliber. There is extensive colonic diverticulosis without CT evidence for acute diverticulitis. There is moderate amount of stool in the colon. No bowel dilatation or obstruction. APPENDIX: Normal appendix. PERITONEUM: No free fluid. No free air. LYMPH NODES: No enlarged lymph nodes. BLADDER: Well distended. There is a 4 mm stone along the dependent posterior wall. REPRODUCTIVE: Unremarkable. BONES: No acute fracture. Status post posterior spinal fusion at L4 on L5. OTHER FINDINGS: None. IMPRESSION: 1. Findings are consistent with recent passage of 6 x 3 mm left ureteral stone which is seen distal to the UV junction in the urinary bladder with residual moderate dilatation of the left ureteral, moderate hydronephrosis, edema and enlargement of the kidney and perinephric fat stranding. Also noted is a 4 mm stone along the dependent posterior wall of the urinary bladder. 2. Two nonobstructing stones in the lower pole of the left kidney measuring 13 mm and 8 mm. 3. Small nonobstructing stones in the lower pole of the right kidney. 4. Colonic diverticulosis without CT evidence for acute diverticulitis.
[2017-09-22 14:03] LABS: ALB/GLOB RATIO 1.5 (1.1-1.8); ALBUMIN 4.3 g/dL (3.0-4.8); ALT/SGPT 27 U/L (7-56); AST/SGOT 31 U/L (17-59); BLOOD UREA NITROGEN 15 mg/dL (7-21); CALCIUM 9.8 mg/dL (8.4-10.5); GFR AFRICAN-AMERICAN > 60; GFR NON-AFRICAN AMERICAN 55; LIPASE 236 U/L (23-300)
[2017-09-22 14:04] LABS: INR 1.08 (0.93-1.08); PARTIAL THROMBOPLASTIN TIME 30.8 Seconds (25.1-36.5); PROTHROMBIN TIME 12.3 SECONDS (9.4-12.5)
[2017-09-22 14:10] LABS: PH,URINE 6.5 (4.7-8.0); URINE APPEARANCE CLEAR (CLEAR); URINE BILIRUBIN NEGATIVE (NEGATIVE); URINE BLOOD MODERATE (NEGATIVE); URINE COLOR YELLOW (YELLOW); URINE GLUCOSE (UA) NEGATIVE (NEGATIVE); URINE LEUKOCYTE ESTERASE NEGATIVE Leu/uL (NEGATIVE); URINE NITRATE NEGATIVE (NEGATIVE); URINE PROTEIN NEGATIVE mg/dL (<30 mg/dL); URINE UROBILINOGEN 0.2 E.U./dL (<1 E.U./dL)
[2017-09-22 14:25] LABS: URINE BACTERIA TRACE (NEG); URINE EPITHELIAL CELLS 0 - 2 /hpf (0-5); URINE RBC 0 - 2 /hpf (0-2); URINE WBC NEGATIVE /hpf (0-6)
--- NOTE | 2017-09-22 14:42 | US ---
HISTORY: left sided pain TECHNIQUE: Realtime sonography through the scrotum with color and doppler flow. COMPARISON: None Available. FINDINGS: RIGHT TESTICLE: Measures 4.0 x 1.3 x 1.8 cm. Normal echotexture and flow. RIGHT EPIDIDYMIS: Epididymal head measures 0.8 x 0.7 x 0.9 cm. Grossly unremarkable appearance with normal flow. LEFT TESTICLE: Measures 3.8 x 1.5 x 1.9 cm. Normal echotexture and flow. LEFT EPIDIDYMIS: Epididymal head measures 0.8 x 0.7 x 0.8 cm. Grossly unremarkable appearance with normal flow. HYDROCELE: None. VARICOCELE: There is a small left varicocele. OTHER FINDINGS: None. IMPRESSION: Small left varicocele. No testicular mass or torsion.
[2017-09-22 15:29] VITALS: BP 118/62; PULSE 88; RESP 16; O2SAT 98
== END 2017-09-22 15:26 | disposition home or self-care (01) ==
LOC: ED 12:37
DX: N20.0 Calculus of kidney (principal); I86.1 Scrotal varices; N50.812 Left testicular pain; I25.2 Old myocardial infarction; I10 Essential (primary) hypertension; Z87.891 Personal history of nicotine dependence
CPT/HCPCS: 74176; 80053; 81001; 83690; 85025; 85610; 85730; 93975; 96374; 99284; J1885; J7040

== ENCOUNTER 2018-10-16 10:21 | Outpatient (CLI) | payer MEDICAID | END 2018-10-16 10:22 | disposition home or self-care (01) | LOC: RAD 10:21 ==